=== PATIENT | female | born 1940 | race Caucasian/White ===

== ENCOUNTER 2020-12-04 10:15 | Emergency (ER) | payer MEDICARE ==
[~2020-12-04] VITALS: Ht 165.1 cm; Wt 87.5 kg
[2020-12-04 10:44] LABS: BASOPHILS % 0.2 % (0.0-1.0); HEMATOCRIT 34.1 % (34.2-44.1); HEMOGLOBIN 11.2 g/dL (12.0-16.0); LYMPHOCYTES # (AUTO) 1.2 (1.0-3.2); LYMPHOCYTES % 26.1 % (18.0-39.1); MEAN CORPUSCULAR HEMOGLOBIN 28.1 pg (28-32); MEAN CORPUSCULAR HGB CONC 32.8 g/dL (31-35); MEAN CORPUSCULAR VOLUME 85.5 fL (81-99); MONOCYTES # (AUTO) 0.5 (0.2-0.8); MONOCYTES % 10.9 % (4.4-11.3); NEUTROPHILS # (AUTO) 2.9 (2.1-6.9); NEUTROPHILS % 62.6 % (38.7-80.0); PLATELET COUNT 165 x10e3/uL (140-360); RED BLOOD COUNT 3.99 x10e6/uL (3.6-5.1); RED CELL DISTRIBUTION WIDTH 13.4 % (11.7-14.4)
[2020-12-04 11:13] LABS: ALBUMIN 2.8 g/dL (3.5-5.0); CALCIUM 7.9 mg/dL (8.4-10.2); CREATININE, SERUM 0.94 mg/dL (0.57-1.11)
[2020-12-04] MEDS ORDERED: POTASSIUM CHLORIDE 20 MEQ TAB CR PO STA (11:42)
[2020-12-04 12:24] LABS: CLARITY,URINE CLEAR (CLEAR); COLOR,URINE YELLOW (YELLOW); KETONES,URINE NEGATIVE (NEGATIVE); LEUKOCYTE ESTERASE ,URINE NEGATIVE (NEGATIVE); NITRITE,URINE NEGATIVE (NEGATIVE); PROTEIN,URINE DIPSTICK NEGATIVE (NEGATIVE); URINE UROBILINOGEN 0.2 mg/dL (0.2 - 1)
[2020-12-04 12:25] LABS: EPITHELIAL CELLS,URINE RARE /LPF; MUCUS,URINE FEW (RARE); RBC,URINE 0-5 /HPF (0-5); WBC,URINE (MAN) 0-5 /HPF (0-5)
[2020-12-04] MEDS ORDERED: SODIUM CHLORIDE 0.9% 50ML 50 ML ONE (13:23)
[2020-12-04] MEDS ORDERED: IOPAMIDOL 370 MG/ML 200 ML INFUS..BTL INJ ONE (13:23)
[2020-12-04 15:24] VITALS: BP 116/81
== END 2020-12-04 15:25 | disposition home or self-care (01) ==
LOC: ER 12:17
DX: U07.1 COVID-19 (principal); R10.13 Epigastric pain; R50.9 Fever, unspecified; E87.6 Hypokalemia; R53.1 Weakness; R05 Cough; I10 Essential (primary) hypertension; E11.9 Type 2 diabetes mellitus without complications
CPT/HCPCS: 36415; 71045; 74177; 80053; 81001; 82550; 82553; 82948; 83690; 84484; 85025; 93005; 99284; Q9967; U0002

== ENCOUNTER 2022-10-25 10:20 | Observation (INO) | payer MEDICARE ==
[~2022-10-25] VITALS: Ht 170.2 cm; Wt 83.9 kg
[2022-10-25] MEDS ORDERED: DEXTROSE 50% SYRINGE 50 ML IV STA (10:42)
[2022-10-25] MEDS ORDERED: DEXTROSE 50% SYRINGE 50 ML IV ONE (10:57)
[2022-10-25 11:07] LABS: BASOPHILS % 0.2 % (0.0-1.0); EOSINOPHILS % 0.2 % (0.0-6.0); HEMATOCRIT 30.4 % (34.2-44.1); HEMOGLOBIN 9.3 g/dL (12.0-16.0); LYMPHOCYTES % 18.6 % (18.0-39.1); MEAN CORPUSCULAR HEMOGLOBIN 29.5 pg (28-32); MEAN CORPUSCULAR HGB CONC 30.6 g/dL (31-35); MEAN CORPUSCULAR VOLUME 96.5 fL (81-99); MONOCYTES # (AUTO) 0.5 (0.2-0.8); MONOCYTES % 9.8 % (4.4-11.3); NEUTROPHILS # (AUTO) 3.6 (2.1-6.9); NEUTROPHILS % 70.8 % (38.7-80.0); PLATELET COUNT 148 x10e3/uL (140-360); RED BLOOD COUNT 3.15 x10e6/uL (3.6-5.1); RED CELL DISTRIBUTION WIDTH 13.5 % (11.7-14.4)
[2022-10-25 11:30] LABS: ALBUMIN/GLOBULIN RATIO 1.7 (0.8-2.0); ANION GAP 15.9 mmol/L (8-16); CALCIUM 9.3 mg/dL (8.4-10.2); CREATININE, SERUM 1.25 mg/dL (0.57-1.11); POTASSIUM 3.9 mmol/L (3.5-5.1)
[2022-10-25] MEDS ORDERED: SODIUM CHLORIDE 0.9% 1000ML 1,000 ML IV ONE (12:45)
[2022-10-25] MEDS ORDERED: DEXTROSE 10% 1,000 ML IV ONE (13:00)
[2022-10-25] MEDS ORDERED: SODIUM CHLORIDE FLUSH 10 ML SYR INJ PRN (13:15)
[2022-10-25] MEDS ORDERED: ONDANSETRON HCL INJ 2MG/ML 2ML 2 MG/ML VIAL IV PRN (13:15)
[2022-10-25 16:00] VITALS: BP 149/79
[2022-10-25] MEDS ORDERED: CLONIDINE HCL 0.1 MG TAB PO PRN (16:00)
[2022-10-25] MEDS: OSELTAMIVIR PHOSPHATE 75 MG CAP PO SCH (16:15)
[2022-10-25] MEDS ORDERED: DEXTROSE 50% SYRINGE 50 ML IV PRN (17:00)
[2022-10-25] MEDS ORDERED: VESICARE5 MG PO (18:35)
[2022-10-25] MEDS ORDERED: AMLODIPINE BESYL5 MG PO (18:35)
[2022-10-25] MEDS ORDERED: GLIMEPIRIDE2 MG PO (18:35)
[2022-10-25] MEDS ORDERED: GABAPENTIN300 MG PO (18:35)
[2022-10-25] MEDS ORDERED: FENOFIBRATE145 MG PO (18:35)
[2022-10-25] MEDS ORDERED: LEVOTHYROXINE50 MCG PO (18:35)
[2022-10-25] MEDS ORDERED: LASIX20 MG PO (18:35)
[2022-10-25 20:31] VITALS: BP 127/45
[2022-10-25] MEDS ORDERED: DEXTROSE 5%/0.9% SOD CHL 1,000 ML IV ONE (21:15)
[2022-10-25] MEDS: ACETAMINOPHEN 325 MG TAB PO PRN (22:22)
[2022-10-26 00:31] VITALS: BP 132/42
[2022-10-26 05:24] VITALS: BP 122/41
[2022-10-26] MEDS: ACETAMINOPHEN 325 MG TAB PO PRN (05:42)
[2022-10-26 06:16] LABS: BASOPHILS % 0.4 % (0.0-1.0); EOSINOPHILS % 0.4 % (0.0-6.0); HEMATOCRIT 30.7 % (34.2-44.1); LYMPHOCYTES % 39.2 % (18.0-39.1); MEAN CORPUSCULAR HEMOGLOBIN 28.7 pg (28-32); MEAN CORPUSCULAR HGB CONC 32.6 g/dL (31-35); MEAN CORPUSCULAR VOLUME 88.2 fL (81-99); MONOCYTES # (AUTO) 0.6 (0.2-0.8); MONOCYTES % 12.5 % (4.4-11.3); NEUTROPHILS # (AUTO) 2.4 (2.1-6.9); NEUTROPHILS % 47.1 % (38.7-80.0); PLATELET COUNT 157 x10e3/uL (140-360); RED BLOOD COUNT 3.48 x10e6/uL (3.6-5.1); RED CELL DISTRIBUTION WIDTH 13.9 % (11.7-14.4)
[2022-10-26 06:46] LABS: ALBUMIN 3.3 g/dL (3.5-5.0); ALBUMIN/GLOBULIN RATIO 1.7 (0.8-2.0); ANION GAP 13.1 mmol/L (8-16); CALCIUM 8.6 mg/dL (8.4-10.2); CREATININE, SERUM 1.19 mg/dL (0.57-1.11); POTASSIUM 3.1 mmol/L (3.5-5.1)
[2022-10-26 08:36] VITALS: BP 135/55
[2022-10-26] MEDS ORDERED: LEVOTHYROXINE SODIUM 50 MCG TAB PO SCH (09:00)
[2022-10-26] MEDS ORDERED: AMLODIPINE BESYLATE 5 MG TAB PO SCH (09:00)
[2022-10-26] MEDS ORDERED: FENOFIBRATE 160 MG PO SCH (09:00)
[2022-10-26 09:45] VITALS: BP 135/55
[2022-10-26] MEDS ORDERED: POTASSIUM CHLORIDE 10MEQ EA PO ONE (11:00)
[2022-10-26] MEDS ORDERED: TAMIFLU75 MG PO (11:46)
[2022-10-26 12:18] VITALS: BP 130/70
[2022-10-26] MEDS: OSELTAMIVIR PHOSPHATE 75 MG CAP PO SCH (13:25)
[2022-10-26] MEDS ORDERED: ONDANSETRON HCL 4 MG ORAL DISINTEGRATING TAB PO PRN (13:45)
[2022-10-26] MEDS ORDERED: FUROSEMIDE 20 MG TAB PO SCH (17:00)
[2022-10-26] MEDS ORDERED: GLIMEPIRIDE 2 MG TAB PO SCH (17:00)
== END 2022-10-26 16:07 | disposition home or self-care (01) ==
LOC: ER 10:23 → ERHOLD 13:18 → MED/SURG2 15:48
PROVIDERS: ADMIT Internal Medicine; ATTEND Internal Medicine
DX: E11.649 Type 2 diabetes mellitus with hypoglycemia without coma (principal); Z79.4 Long term (current) use of insulin; J10.1 Influenza due to other identified influenza virus with other respiratory manifestations; I10 Essential (primary) hypertension; N17.9 Acute kidney failure, unspecified; D64.9 Anemia, unspecified; Z20.822 Contact with and (suspected) exposure to COVID-19
CPT/HCPCS: 36415 ×2; 71045; 80053 ×2; 82948 ×2; 85025 ×2; 87400; 99251; 99285; G0378 ×2; J7030; J7042; J7799; U0002

== ENCOUNTER 2025-08-04 16:16 | Emergency (ER) | payer MEDICARE ==
[~2025-08-04] VITALS: Ht 170.2 cm; Wt 85.3 kg
[~2025-08-04 16:16] MED LIST: AMLODIPINE BESYL5 MG PO; CARVEDILOL12.5 MG PO; CEPHALEXIN500 MG PO; CIPRO500 MG PO; CITALOPRAM HBR20 MG PO; FENOFIBRATE145 MG PO; GABAPENTIN300 MG PO; GLIMEPIRIDE2 MG PO; LASIX20 MG PO; LEVOTHYROXINE50 MCG PO; TAMIFLU75 MG PO; VESICARE5 MG PO
[2025-08-04] MEDS ORDERED: SODIUM CHLORIDE 0.9% 500ML 500 ML IV ONE (17:30)
[2025-08-04 17:35] LABS: BASOPHILS % 0.1 % (0.0-1.0); EOSINOPHILS % 0.1 % (0.0-6.0); LYMPHOCYTES % 15.1 % (18.0-39.1); MONOCYTES % 5.8 % (4.4-11.3); NEUTROPHILS % 77.6 % (38.7-80.0); RED CELL DISTRIBUTION WIDTH 13.1 % (11.7-14.4)
[2025-08-04 17:49] LABS: INR 0.85
[2025-08-04 17:58] LABS: EST GLOMERULAR FILTRATION RATE 29.0 ML/MIN (>=60)
[2025-08-04 19:18] VITALS: PULSE 71; RESP 17; TEMP 98.1; O2SAT 98
== END 2025-08-04 19:10 | disposition home or self-care (01) ==
LOC: ER 18:30
DX: R11.0 Nausea (principal); R51.9 Headache, unspecified; T38.0X5A Adverse effect of glucocorticoids and synthetic analogues, initial encounter; I10 Essential (primary) hypertension; E11.65 Type 2 diabetes mellitus with hyperglycemia; R94.31 Abnormal electrocardiogram [ECG] [EKG]
CPT/HCPCS: 36415; 70450; 71045; 80053; 82948; 83735; 84484; 85025; 85610; 85730; 93005; 99284